=== PATIENT | male | born 1955 | race Caucasian/White ===

== ENCOUNTER 2024-06-11 22:08 | Inpatient (IN) | payer MEDICARE, OTHER, SELFPAY ==
[2024-06-11 19:00] VITALS: BP 168/88
[2024-06-11 19:12] LABS: Hematocrit 29.5 % (39.0-52.0); Mean Corp Hgb Conc. 33.9 g/dL (33.0-37.0); Mean Corpuscular Hgb 29.6 pg (27.0-31.0); Mean Corpuscular Volume 87.3 fL (80.0-94.0); Mean Platelet Volume 8.8 fL (7.4-10.4); Platelet Count 202 10^3/uL (130-400); Red Blood Cell Count 3.38 10^6/uL (4.70-6.10); Red Cell Dist. Width 13.3 % (11.5-14.5); White Blood Cell Count 6.7 10^3/uL (4.8-10.8)
[2024-06-11 19:40] LABS: ALT (SGPT) 20 U/L (0-50); AST (SGOT) 20 U/L (17-59); Albumin 4.1 g/dl (3.5-5.0); Alkaline Phosphatase 53 U/L (38-126); Blood Urea Nitrogen 36 mg/dl (9-20); Calcium 9.7 mg/dl (8.4-10.2); Carbon Dioxide 14 mmol/L (22-30); Glucose 80 mg/dl (70-99); Total Bilirubin 0.4 mg/dl (0.2-1.3); Total Protein 6.1 g/dl (6.3-8.2); eGFR 33.24
[2024-06-11 19:51] LABS: Chloride 116 mmol/L (98-107); Potassium 6.3 mmol/L (3.5-5.1); Sodium 144 mmol/L (135-145)
[2024-06-11 19:57] VITALS: BP 184/82
[2024-06-11 20:00] VITALS: BP 178/77
[2024-06-11 20:28] LABS: Glucose - Point of Care 113 mg/dl (70-99)
--- NOTE | 2024-06-11 20:28 | ED.GENMED ---
History of Present Illness
General
Chief Complaint: Abnormal Lab Value
Source: patient
Time Seen by Provider: 06/11/24 20:03
History of Present Illness
History of Present Illness:
69-year-old male with history of hypertension and recent adrenal gland removal performed in January of this year presents in referral from cardiology at [facility] for elevated potassium levels drawn as an outpatient. Patient notes he has been
getting cramps in his legs he denies chest pain abdominal pain or shortness of breath. No fevers. No vomiting. No other complaint
Phy Exam
Physical Exam
Physical Exam:
General: Well-appearing male no acute respiratory distress
HEENT: Normocephalic atraumatic
Heart: Regular rate and rhythm no murmurs
Lungs: Clear no wheeze or rales
Abdomen is soft nontender nondistended
Extremities: No cyanosis or edema
Skin: Warm no rash
Course
Orders/Labs/Results
Orders:
Orders
06/11/24 19:05
CBC/No Diff [Complete Blood Count/No Diff] Urgent
Comprehensive Metabolic Panel Urgent
06/11/24 19:59
Electrocardiogram (*1) Urgent
Reason for Study: Fatigue / Weakness
EKG- Treatment ONCE
06/11/24 20:13
Dextrose 50%-Water [Dextrose 50% Syringe] 12.5 grams IV [id number] PRN
Dextrose 50%-Water [Dextrose 50% Syringe] 25 grams IV NOW STA
Insulin Human Regular [Novolin R] 5 units IV NOW STA
Sodium Bicarbonate 50 meq IV NOW STA
06/11/24 20:16
Bedside Glucose- Treatment DIRECTED
Bedside Glucose- Treatment ONCE
06/11/24 22:46
Potassium Urgent
Comment: draw 2 hours after regular insulin IV administration
06/12/24 06:00
Sodium Zirconium Cyclosilicate [Lokelma] 10 gram PO TID@0600,1400,1800
Abnormal Lab Results
06/11/24
19:05
RBC 3.38 L 10^6/uL
(4.70-6.10)
Hgb 10.0 L g/dL
(13.0-18.0)
Hct 29.5 L %
(39.0-52.0)
Potassium 6.3 H* mmol/L
(3.5-5.1)
Chloride 116 H mmol/L
(98-107)
Carbon Dioxide 14 L* mmol/L
(22-30)
BUN 36 H mg/dl
(9-20)
Creatinine 2.1 H mg/dL
(0.7-1.3)
Total Protein 6.1 L g/dl
(6.3-8.2)
06/11/24 19:05
Vital Signs
Initial and Last Documented VS:
Initial Vital Signs
Temp Pulse Resp BP Pulse Ox
97.8 F 74 22 168/88 98
06/11/24 19:00 06/11/24 19:00 06/11/24 19:00 06/11/24 19:00 06/11/24 19:00
Last Documented Vital Signs
Temp Pulse Resp BP Pulse Ox
97.8 F 59 22 178/77 98
06/11/24 19:00 06/11/24 20:00 06/11/24 19:00 06/11/24 20:00 06/11/24 20:00
MDM/Problems Addressed
Differential Diagnosis Includes:
Sent in for high potassium readings as outpatient. Potassium here is 6.3. There may be 1-lead on EKG, V2 with a EKG change there is no other changes noted. Vitals are stable otherwise. Patient has creatinine of 2.1 with a bicarb of 14. Insulin
dextrose Lokelma and bicarb ordered and will admit patient for acute hyperkalemia
*Critical Care Note
Total Time (30-74mins, 75-104mins- exclusive of procedures): Not Applicable
ED Attending Note
-
Portions of this chart may have been created with voice recognition software.� Occasional wrong word or��sound alike� substitutions may have occurred due to the inherent limitations of voice recognition software.
Discharge Plan
Departure
Patient Disposition: Admit
Date of Disposition: 06/11/24
Time of Disposition: 20:31
Admit to: Telemetry
Presentation/result/management discussed w/ accepting MD/DO: Hospitalist
Discharge Problem:
Acute hyperkalemia
Prescriptions:
No Action
atorvastatin 40 mg Tablet
40 mg PO HS
clonidine HCl 0.1 mg Tablet
0.05 mg PO TIDPRN PRN (Reason: SBP>160)
hydralazine 25 mg Tablet
25 mg PO TID
nifedipine 30 mg Tablet Extended Release
30 mg PO BID
aspirin 81 mg Tablet,Chewable
81 mg PO HS
cholecalciferol (vitamin D3) [Vitamin D3] 25 mcg (1,000 unit) Tablet
25 mcg PO DAILY
Interventions
Interventions:
*Risk Screen - Suicide Last Done: 06/11/24 18:53
*General Assessment Last Done: 06/11/24 20:09
*Neglect/Abuse Screening Last Done: 06/11/24 19:00
*ED COVID-19 Vaccine History Last Done: 06/11/24 20:09
Discharge Date and Time
Print Language: CITIZEN OF [place]
[2024-06-11] MEDS: NOVOLIN R 5 UNITS IV (20:34)
[2024-06-11] MEDS: DEXTROSE 50% SYRINGE 25 GRAMS IV ×2 (20:34→22:02)
[2024-06-11] MEDS: SODIUM BICARBONATE 50 MEQ IV (20:35)
--- NOTE | 2024-06-11 20:37 | HPS.HSE ---
Family Physician
-
Family Physician:
Chief Complaint
-
leg cramps , chest pain
History of Present Illness
69-year-old male who is English-speaking only and daughter is currently at bedside translating states her father has had potassium issues secondary to adrenal impairment ongoing since winter. She reports he underwent an adrenal gland removal
unclear side January 2024 at [facility]. He periodically checks his potassium when he is symptomatic. She reports on 06/05/2024 he had his potassium checked and he was called today with abnormal result of greater than 6. He has been
complaining of leg cramps for the past 3 days. She is unaware of any underlying renal impairment. She states he had labs in March with normal creatinine and potassium of 5.1. He also had outpatient renal artery ultrasound to rule out renal artery
stenosis due to uncontrolled hypertension. He denies any difficulty voiding his last void was approximately at 5 PM today. She reports his renal ultrasound was normal except for a small right renal cyst. He also told her last week he was having
chest pain for 4 days lasting approximately 10 minutes at a time at rest. She states he had episode today left-sided chest lasting 10 minutes 6 out of 10 which self resolved. She states he did not tell her until they arrived here at the hospital.
He denies headache, blurred vision, palpitations, shortness breath, cough, abdominal pain, nausea, vomiting, diarrhea, urinary symptoms, fever, chills.
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
Medical History
Past Medical History
Past Medical History: Reports Other
Additional Past Medical History:
CAD/Cabg x 4 vessel
HTN
HLD
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
Past Surgical History: Reports Other
Additional Past Surgical History:
CABG x 4 vessel 2013
Appendectomy
Tonsillectomy
Cholecystectomy 1997
adrenal gland removal 2023
sinus surgery
Social History
Tobacco: Non-smoker
Alcohol: None
Drug: None
Personal:
Living: With Family ( )
Family History
Family History: Not pertinent
Allergies / Home Medications
Allergies reflects when Allergies were last updated in [facility].
Home Medications with original date entered in [facility]
Allergy/Medication List:
Allergies
Allergy/AdvReac Type Severity Reaction Status Date / Time
ciprofloxacin [From Cipro] Allergy Unknown Verified 06/11/24 19:02
Home Medications
aspirin 81 mg chewable tablet 81 mg PO HS 06/11/24
atorvastatin 40 mg tablet 40 mg PO HS 06/11/24
cholecalciferol (vitamin D3) 25 mcg (1,000 unit) tablet (Vitamin D3) 25 mcg PO DAILY 06/11/24
clonidine HCl 0.1 mg tablet 0.05 mg PO TIDPRN PRN SBP>160 06/11/24
hydralazine 25 mg tablet 25 mg PO TID 06/11/24
nifedipine 30 mg tablet,extended release 30 mg PO BID 06/11/24
Review of Systems
-
History Source: Patient and Family (daugther)
A 12 point ROS was completed and negative except as noted: Yes
Constitutional: Denies Fever, Fatigue or Chills
EENT: Denies Sore Throat or Runny Nose
Respiratory: Denies Cough, Hemoptysis or Trouble Breathing
Cardiac: Reports Chest Pain (left sided earlier today x 10 min); Denies Diaphoresis, Palpitations or Syncope
Abdomen/GI: Denies Abdominal Pain, Nausea, Vomiting, Diarrhea, Constipated, Bloody Stools, Black Stools, Anorexia or Pain
: Denies Dysuria, Frequency, Flank Pain, Incontinence, Difficulty Voiding, Urgency, Bleeding or Dark Urine
Musculoskeletal: Reports Other (leg cramps reported); Denies Joint Pain, Joint Swelling or Edema
Skin: Denies Itching or Rash
Neurological: Denies Dizzy, Headache, Weakness or Numbness
Endocrine: Reports No Symptoms
Hematologic/Lymphatic: Reports No Symptoms
Psych: Reports Calm
Physical Exam
Vital Signs
Vital Signs
Temp Pulse Resp BP Pulse Ox
97.8 F 59 22 178/77 98
06/11/24 19:00 06/11/24 20:00 06/11/24 19:00 06/11/24 20:00 06/11/24 20:00
Physical Exam
General: No Apparent Distress, Comfortable and Conversant; No Pain, Fever or Chills
HEENT: NormoCephalic, Anicteric, Moist mucous membranes, Atraumatic, PERRLA, [place] Conjunctivae and No Ptosis
Respiratory: Clear; No Wheezes, Rales or Rhonchi
Cardiac: S1/S2 and Regular Rhythm; No Murmur, Rub, Gallop or Peripheral Edema
Breast: Deferred by me
GI: Soft, Non Tender, Non Distended, Normal Bowel Sounds and No Hepatosplenomegaly
Rectal: Deferred by Provider
Genito-urinary: Deferred by me
Musculoskeletal: No Clubbing, No Cyanosis and No Edema
Skin: Warm and Dry; No Rash
Neuro: AO x 3 (speaks citizen of [place] ), No Motor Deficits, Nonfocal/grossly intact and No Sensory Deficits; No Slurred Speech, Facial Droop or Tremors
Psych: Calm
Laboratory Results
-
06/11/24 19:05
Laboratory Results
Total Bilirubin 0.4 mg/dl (0.2-1.3) 06/11/24 19:05
AST 20 U/L (17-59) 06/11/24 19:05
ALT 20 U/L (0-50) 06/11/24 19:05
Alkaline Phosphatase 53 U/L (38-126) 06/11/24 19:05
Impression/Plan
-
Impression/plan:
Admit to telemetry
#Acute hyperkalemia poss 2/2 adrenal insufficiency
K6.3
Patient given Lokelma, insulin, dextrose, bicarb in ER
Bmp at 0100 and 0600
-Obtain records from PCP Dr. Fritz North [phone]
#Chuck
#Hx right renal cyst per daughter
- Renal ultrasound with dopplers
-Consult Nephro
-U/a resident in diagnostic radiology
-urine na, urine creat, urine protein
#Chest pain-Resolved
#CAD/CABG x 4 vessel 2013 [facility]
Reports 10 episode of left-sided chest pain earlier today self resolved was 6 out of 10
-If develops chest pain 3 evening will obtain troponin and EKG
-Sublingual nitro as needed chest pain
-Patient follows with Dr. Robert Navarro [phone]-will obtain recent records including echo, consult, renal ultrasound, labs
-Continue aspirin 81 mg at bedtime, atorvastatin 40 mg at bedtime
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
#HTN�benign/history of prior uncontrolled HTN
-Continue nifedipine 30 mg p.o. twice daily, hydralazine 25 mg 3 times daily
-Continue clonidine 0.05 mg 3 times daily as needed as needed SBP> 160
Dvt proph
-sq heparin
full code
--- NOTE | 2024-06-11 20:57 | W.PN.UPDATE ---
Update Note
Progress Note Update
Patient seen in conjunction with LEXI. She has a history and physical as stated and I agree with the findings. I agree with the assessment and plan unless otherwise stated below.
Briefly this is a 69-year-old with past medical history of CAD status post CABG in 2013, uncontrolled hypertension and diagnosis of Feng syndrome status post adrenalectomy who presents to the emergency department following a blood work showing
hyperkalemia by his change control manager. He also reports of intermittent episodes of chest pain with 1 episode lasting for minutes of a burning sensation last week and another episode today. He actually denies any urinary symptoms including decreased
urine output incontinence frequency or urgency. Denies any prior history of for kidney insufficiency. As stated in the H&P patient has had prior imaging showing a single liver cyst, no anatomical abnormalities of the kidneys in the last 6 months
Assessment and Plan
69-year-old with past medical history of CAD status post CABG in 2013, hypertension, Feng syndrome status post recent adenectomy, who presents to the emergency department with hyperkalemia. His change control manager received blood work 1 week ago with
hyperkalemia and requested that he come to the emergency department. Patient has a history of borderline elevated potassium and variable potassium since his adrenalectomy in February. He is not currently on any potassium sparing diuretics. Unclear
dietary intake. He is hypertensive and acidotic with a bicarb of 14. BUN is elevated at 36 and creatinine of 2.1. The rest of his electrolytes and CBC are within normal limits.
1. Hyperkalemia/Acidosis -hyperkalemia with acidosis consistent with being possibly secondary to mineralocorticoid deficiency/adrenal insufficiency. He did have a adrenalectomy but giving standing history of history is contralateral adrenal may
have been suppressed. However the patient is hypertensive which makes the diagnosis criteria unclear. Also possibly OPAL. No recent abx or potassium sparing diuretic.
- telemetry
- temporizing measures with insulin/dextrose, bicarb. Lokelma given.
- repeat labs in 4 hours and check venous blood gas to verify acidosis
- check am cortisol
- low K diet
- nephrology consult
2. Renal insufficiency - Possibly OPAL as no prior labs and patient unaware of prior renal dysfunction. Reports regular urination
- urinalysis with urine Na, Cr, and protein to eval for sediments, FENa, and proteinuria
- renal/bladder u/s with renal artery dopplers to eval for SAAD given uncontrolled htn
- nephrology consult
3. Chest pain - Intermittent cp, burning lasting few minutes. Atypical but no known GERD
- telemetry
- ntg prn chest pain w/ stat trop
- aspirin 81 for now
- continue statin and bp control
- f/u with cardiology as outpt
4. HTN
- continue hydralazine and nifedipine
- prn clonidine per home regimen
- pending cortisol and renal evaluation, may benefit from hctz if no adrenal insufficiency and or stable renal function
DVT - PPX hep sq
Code Status - Full
[2024-06-11 21:49] LABS: Glucose - Point of Care 61 mg/dl (70-99)
[2024-06-11 22:36] VITALS: BMI 25.3
[2024-06-11 22:37] VITALS: BP 180/88
--- NOTE | 2024-06-11 22:40 | PTCARENOTE ---
Received pt from ER at 2230. Pt AAOx3, ambulatory in room. Pt Slovak speaking with daughter in room to help translate. Oriented to room, call hassan and plan of care.
[2024-06-11] MEDS: LOW STRENGTH ASPIRIN 81 MG PO (22:42)
[2024-06-11] MEDS: APRESOLINE 25 MG PO (22:42)
[2024-06-11] MEDS: LIPITOR 40 MG PO (22:42)
[2024-06-11 22:52] LABS: Glucose - Point of Care 94 mg/dl (70-99)
[2024-06-12 00:22] LABS: Potassium 6.2 mmol/L (3.5-5.1)
[2024-06-12 01:09] LABS: Blood Urea Nitrogen 34 mg/dl (9-20); Calcium 9.7 mg/dl (8.4-10.2); Carbon Dioxide 15 mmol/L (22-30); Chloride 116 mmol/L (98-107); Estimated Creatinine Clearance 37 ml/min; Glucose 102 mg/dl (70-99); Sodium 144 mmol/L (135-145); eGFR 39.99
[2024-06-12] MEDS: NOVOLIN R 0.05 UNITS IV (01:16)
[2024-06-12] MEDS: LOKELMA 10 GRAM PO ×2 (01:16→11:33)
[2024-06-12] MEDS: SODIUM BICARBONATE 50 MEQ IV (01:16)
[2024-06-12] MEDS: DEXTROSE 50% SYRINGE 25 GRAMS IV (01:16)
[2024-06-12 01:34] LABS: Urine Protein 13 mg/dl (0-12); Urine Sodium 140 mmol/L (30-90)
[2024-06-12 02:00] VITALS: BP 143/73
[2024-06-12 02:00] LABS: Glucose - Point of Care 167 mg/dl (70-99)
[2024-06-12 04:16] LABS: % Basophils 0.3 % (0-2); % Eosinophils 3.8 % (0-6); % Immature Granulocytes 0.3 % (0-0.5); % Lymphocytes 20.9 % (20.5-51.1); % Monocytes 9.3 % (1.7-9.3); % Neutrophils 65.4 % (42.2-75.2); Absolute Eosinophils 0.2 10^3/uL (0-0.7); Absolute Lymphocytes 1.2 10^3/uL (1.2-3.4); Absolute Monocytes 0.5 10^3/uL (0.1-0.6); Absolute Neutrophils 3.8 10^3/uL (1.4-6.5); Hematocrit 29.7 % (39.0-52.0); Hemoglobin 10.2 g/dL (13.0-18.0); Mean Corp Hgb Conc. 34.3 g/dL (33.0-37.0); Mean Corpuscular Hgb 30.3 pg (27.0-31.0); Mean Corpuscular Volume 88.1 fL (80.0-94.0); Mean Platelet Volume 9.1 fL (7.4-10.4); Nucleated Red Blood Cells % 0 % (-); Platelet Count 170 10^3/uL (130-400); Red Blood Cell Count 3.37 10^6/uL (4.70-6.10); Red Cell Dist. Width 13.1 % (11.5-14.5); White Blood Cell Count 5.8 10^3/uL (4.8-10.8)
[2024-06-12 04:44] LABS: ALT (SGPT) 19 U/L (0-50); AST (SGOT) 18 U/L (17-59); Albumin 3.7 g/dl (3.5-5.0); Alkaline Phosphatase 52 U/L (38-126); Blood Urea Nitrogen 31 mg/dl (9-20); Calcium 9.7 mg/dl (8.4-10.2); Carbon Dioxide 18 mmol/L (22-30); Chloride 114 mmol/L (98-107); Estimated Creatinine Clearance 39 ml/min; Glucose 101 mg/dl (70-99); Potassium 5.1 mmol/L (3.5-5.1); Sodium 145 mmol/L (135-145); Total Bilirubin 0.5 mg/dl (0.2-1.3); Total Protein 5.7 g/dl (6.3-8.2); eGFR 42.83
[2024-06-12 05:14] LABS: Cortisol, Random 5.5 ug/dl
[2024-06-12 05:22] LABS: Urine Albumin Negative (Neg - Trace); Urine Bilirubin Negative (Negative); Urine Character Clear (Clear); Urine Color Yellow; Urine Glucose Negative (Negative); Urine Ketone Negative (Negative); Urine Leukocyte Negative (Negative); Urine Nitrite Negative (Negative); Urine Occult Blood Negative (Negative); Urine Urobilinogen Negative (Neg - 1+)
[2024-06-12 07:10] VITALS: BP 162/77
[2024-06-12 07:54] LABS: Glucose - Point of Care 93 mg/dl (70-99)
[2024-06-12 08:21] LABS: Blood Urea Nitrogen 31 mg/dl (9-20); Calcium 9.4 mg/dl (8.4-10.2); Carbon Dioxide 20 mmol/L (22-30); Chloride 115 mmol/L (98-107); Estimated Creatinine Clearance 37 ml/min; Glucose 92 mg/dl (70-99); Magnesium 1.9 mg/dl (1.6-2.3); Phosphorus 3.7 mg/dl (2.5-4.5); Potassium 5.8 mmol/L (3.5-5.1); Sodium 144 mmol/L (135-145); eGFR 39.99
[2024-06-12 08:51] LABS: TSH Reflex To Free T4 1.92 uIU/ml (0.47-4.68)
[2024-06-12] MEDS: PROCARDIA XL (EXTENDED RELEASE) 30 MG PO ×2 (09:02→19:30)
[2024-06-12] MEDS: APRESOLINE 25 MG PO ×3 (09:03→22:00)
[2024-06-12] MEDS: HEPARIN 5000 UNITS SC ×3 (09:03→23:54)
[2024-06-12] MEDS: VITAMIN D3 (cholecalciferol) 25 MCG PO (09:03)
[2024-06-12 09:29] LABS: Glycohemoglobin (HgbA1c) 5.1 % (4.0-5.6)
--- NOTE | 2024-06-12 09:55 | W.PN.HOSP.TC ---
Today's Communication/Plan
-
Cardio consult
Echo
Lokelma, serial BMP, nephrology
Assessment / Plan
Assessment / Plan
69yo M, montserratian-speaking, with PMHx of CAD s/p CABG in 2013, uncontrollable HTN s/p L adrenal removal for hyperaldosteronism in [facility] appr 6 months ago with subsequent recurrent hyperkalemia came with elevated potassium and b/l LE cramps similar
that he had 2 months ago too. ALso had couple of episodes of urning chest pain lasting for 15min at rest, that happened last week - he did not told about it to anyone.
A/P:
#Hyperkalemia
#OPAL vs CKD unspecified
most likely 2/2 adrenal insufficiency postsurgical
Nephrology consult
Lokelma and follow potassium level
low potassium diet
With still poor BP control - fludrocortisone can be challenging
cortizol 5.5
TSH WNL
#Chest pain with PMHX of CAD s/p CABG
#1st degree AVB
Telemetry
Echo
serial trop, EKG on admission with non-specific TW abnormality
Cardio cosnult
cont ASA, lipitor
check LDL, proBNP
#Essential HTN
cont home meds
DVT ppx hep
FUll code
I have spent at least 58min revieing chart, test results, communicating with consultants and direct patient care
Anticipated Discharge: 24 - 48 hours
Subjective/Interval History
-
Date of Service: June 12, 2024
Objective Data
-
Labs:
Laboratory Results
06/11/24 06/12/24 06/12/24
23:46 01:00 04:03
WBC 5.8
Hgb 10.2 L
Hct 29.7 L
Plt Count 170
Sodium 144 Cancelled 145
Potassium 6.2 H* Cancelled 5.1
Chloride 116 H Cancelled 114 H
Carbon Dioxide 15 L Cancelled 18 L
BUN 34 H Cancelled 31 H
Creatinine 1.8 H Cancelled 1.7 H
Glucose 102 H Cancelled 101 H
Calcium 9.7 Cancelled 9.7
Total Bilirubin 0.5
AST 18
ALT 19
Alkaline Phosphatase 52
06/12/24 06/12/24 06/12/24
07:32 09:48 17:48
WBC
Hgb
Hct
Plt Count
Sodium 144 Pending Pending
Potassium 5.8 H Pending Pending
Chloride 115 H Pending Pending
Carbon Dioxide 20 L Pending Pending
BUN 31 H Pending Pending
Creatinine 1.8 H Pending Pending
Glucose 92 Pending Pending
Calcium 9.4 Pending Pending
Total Bilirubin
AST
ALT
Alkaline Phosphatase
Vital Signs:
Vital Signs
Temp Pulse Resp BP Pulse Ox
97.9 F 60 16 162/77 96
06/12/24 07:10 06/12/24 07:10 06/12/24 07:10 06/12/24 07:10 06/12/24 07:10
Review of Systems
-
History Source: Patient
All other systems: Reviewed and negative
Physical Exam
-
General: No Apparent Distress
HEENT: Normocephalic
Respiratory: Clear to Auscultation
Cardiac: Regular Rhythm
GI: Soft, Nontender and Nondistended
Musculoskeletal: No Clubbing, No Cyanosis and No Edema
Neuro: Awake, Alert, Oriented and AO x 3
Psych: Calm
--- NOTE | 2024-06-12 10:52 | CON.CAR ---
Addendum entered and electronically signed by Thomas Scherer MD 06/12/24 14:14:
Patient seen and examined in collaboration with PINKING MACHINE OPERATOR; agree with below.
-69-year-old male with coronary artery disease status-post CABG (2013), hypertension, and recent adrenalectomy admitted with hyperkalemia; cardiology consulted for chest pain approximately 1 week ago.
-The patient's chest pain appears to be atypical as it was described as a mid epigastric burning sensation.
-The patient is not having chest pain now, and his cardiac enzymes were normal.
-Obtain echocardiogram today; if unremarkable, can follow-up with his primary Civil Laboratory Technician as an outpatient.
-Will start Imdur 30 mg daily to help with blood pressure control.
-Nephrology consulted for CKD.
Original Note:
Consultation
Consultation Request
Date/Time Consultation Requested: 06/12/2024 09:50
Date/Time Consultation Performed: 06/12/2024 11:00
Requesting Provider: Dr. Bacon
Performing Provider: LEXI Hunt for Dr. Scherer
Reason for Consultation: Chest pain
Medical History
-
Chief Complaint: Hyperkalemia
History of Present Illness:
Grayson is a 69-year-old Wallisian-speaking male with hypertension and recent adrenal[facility] ([facility] who was referred to the emergency department by his keno manager at [facility] for hyperkalemia. He gets symptomatic with
his hyperkalemia and experiences leg cramps. On arrival his potassium was 6.3 and he had metabolic acidosis. This is being managed by the primary service. Cardiology was consulted today, as he reported he had chest pain yesterday in the emergency
department. It lasted approximately 15 minutes. He also reports he has had the sensation of a burning chest pain once last week.
Past Medical History
Past Medical History: CAD (CABG), HTN, Hypercholesterolemia and Other (adrenalectomy [01/2024 [facility]])
Past Surgical History: Appendectomy, Cardiac (CABG), Cholecystectomy and Other (adrenalectomy [01/2024 [facility]
Social History
Tobacco: Non-Smoker
Living: With Family
Employment: Retired
Family History
Family History: Reviewed & Not Pertinent
Allergies / Home Medications
Allergy/AdvReac Type Severity Reaction Status Date / Time
ciprofloxacin [From Cipro] Allergy Unknown Verified 06/11/24 19:02
�Medication �Instructions �Recorded �Confirmed �Type
aspirin 81 mg chewable tablet 81 mg PO HS Blood Clot 06/11/24 06/11/24 History
Prevention/Tx
atorvastatin 40 mg tablet 40 mg PO HS High Cholesterol 06/11/24 06/11/24 History
cholecalciferol (vitamin D3) 25 25 mcg PO DAILY Supplement 06/11/24 06/11/24 History
mcg (1,000 unit) tablet (Vitamin
D3)
clonidine HCl 0.1 mg tablet 0.05 mg PO TIDPRN PRN SBP>160 06/11/24 06/11/24 History
hydralazine 25 mg tablet 25 mg PO TID Blood Pressure 06/11/24 06/11/24 History
nifedipine 30 mg tablet,extended 30 mg PO BID Blood Pressure 06/11/24 06/11/24 History
release
Review of Systems
-
History Source: Patient
All other systems: Negative unless noted
Constitutional: No Symptoms
EENT: No Symptoms
Respiratory: No Symptoms
Cardiac: No Symptoms
Abdomen/GI: No Symptoms
: No Symptoms
Musculoskeletal: No Symptoms
Skin: No Symptoms
Neurological: No Symptoms
Endocrine: No Symptoms
Hematologic/Lymphatic: No Symptoms
Physical Exam
Vital Signs
Temp Pulse Resp BP Pulse Ox
97.9 F 60 16 162/77 96
06/12/24 07:10 06/12/24 07:10 06/12/24 07:10 06/12/24 07:10 06/12/24 07:10
Lab Results
06/12/24 04:03
Physical Exam
General: Well Developed, Well Nourished, No Apparent Distress and Comfortable
HEENT: Normocephalic, Anicteric and Moist Mucous Membranes
Respiratory: Clear and Non Labored Respirations
Cardiac: S1/S2 and Regular Rhythm; Negative Peripheral Edema
Breast: Deferred by me
GI: Soft, Non Tender, Non Distended and Normal Bowel Sounds
Rectal: Deferred by Provider
Genito-urinary: No Costovertebral Tender
Musculoskeletal: No Clubbing, No Cyanosis and No Edema
Skin: Warm and Dry
Neuro: AO x 3
Hematologic/Lymphatic: No Lymphadenopathy
Psych: Calm
Impression / Plan
-
Chest pain
-Chest pain-free at present
-Troponin pending
-Echocardiogram pending
-proBNP pending
-EKG last evening with sinus bradycardia and first-degree AV block with nonspecific T abnormality, update
-Prior CABG x 4, on aspirin and atorvastatin 40 mg
Hypertension, nephrology following given his presentation with OPAL, hyperkalemia, and metabolic acidosis, add Imdur 30mg
Hyperkalemia with metabolic acidosis and OPAL, status post adrenalectomy 01/2024, nephrology consulted
Data Reviewed
-
EKG: Report Reviewed by me (Sinus rhythm with first-degree AV block, nonspecific T wave abnormality, rate 69)
Ultrasound: Report Reviewed by me (Renal: No acute findings)
Labs: Labs Reviewed by me
[2024-06-12 10:56] LABS: HDL Cholesterol 43 mg/dl; LDL Cholesterol, Calculated 40 mg/dl; Total Cholesterol 98 mg/dl (50-199); Triglyceride 78 mg/dl (10-149); Very Low Density Lipoprotein 15 mg/dl (0-30)
[2024-06-12 11:00] VITALS: BP 148/79
[2024-06-12 11:04] LABS: Glucose - Point of Care 103 mg/dl (70-99)
[2024-06-12 11:21] LABS: NT-proBNP 974 pg/ml
--- NOTE | 2024-06-12 11:26 | W.CON.NEPH ---
Consultation
-
Date/Time Consultation Requested: 06/12/24 0800
Date/Time Consultation Performed: 06/12/24 1100
Requesting Provider: De. Levi
Performing Provider: Dr. Meng
Reason for Consultation: OPAL
Medical History
-
Chief Complaint: Leg cramp, chest pain
History of Present Illness:
This is a 69-year-old Guamanian-speaking only gentleman who has hypertension on a multidrug regimen which is modestly controlled, hyperlipidemia controlled with statin therapy. He apparently had a history of hypokalemia by his reports with potassiums
running as low as 2.9. 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 Since then he reports that his potassium levels have slowly risen, and are now out of range on the high side. He began
having left sided chest pain 4 days ago lasting 10min. There was no shortness of breath, sweats. There is no palpitations. At the time of admission potassium was 6.3. He was treated medically. Creatinine was also noted to be elevated at 1.8
with no known baseline. There is also a metabolic acidosis.
Past Medical History
CAD/Cabg x 4 vessel
HTN
HLD
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
CABG x 4 vessel 2013
Appendectomy
Tonsillectomy
Cholecystectomy 1997
sinus surgery
Social History
Tobacco: Non-Smoker
Alcohol: None
Family History
Family History: Not Pertinent
Allergies / Home Medications
Allergy/AdvReac Type Severity Reaction Status Date / Time
ciprofloxacin [From Cipro] Allergy Unknown Verified 06/11/24 19:02
�Medication �Instructions �Recorded �Confirmed �Type
aspirin 81 mg chewable tablet 81 mg PO HS Blood Clot 06/11/24 06/11/24 History
Prevention/Tx
atorvastatin 40 mg tablet 40 mg PO HS High Cholesterol 06/11/24 06/11/24 History
cholecalciferol (vitamin D3) 25 25 mcg PO DAILY Supplement 06/11/24 06/11/24 History
mcg (1,000 unit) tablet (Vitamin
D3)
clonidine HCl 0.1 mg tablet 0.05 mg PO TIDPRN PRN SBP>160 06/11/24 06/11/24 History
hydralazine 25 mg tablet 25 mg PO TID Blood Pressure 06/11/24 06/11/24 History
nifedipine 30 mg tablet,extended 30 mg PO BID Blood Pressure 06/11/24 06/11/24 History
release
Review of Systems
-
No current chest pain or shortness of breath. No more leg cramping.
All other systems: Negative unless noted
Physical Exam
Vital Signs
Vital Signs
Temp Pulse Resp BP Pulse Ox
97.9 F 60 16 162/77 96
06/12/24 07:10 06/12/24 07:10 06/12/24 07:10 06/12/24 07:10 06/12/24 07:10
Lab Results
WBC 5.8 10^3/uL (4.8-10.8) 06/12/24 04:03
RBC 3.37 10^6/uL (4.70-6.10) L 06/12/24 04:03
Hgb 10.2 g/dL (13.0-18.0) L 06/12/24 04:03
Hct 29.7 % (39.0-52.0) L 06/12/24 04:03
Plt Count 170 10^3/uL (130-400) 06/12/24 04:03
eGFR 39.99 06/12/24 07:32
Phosphorus 3.7 mg/dl (2.5-4.5) 06/12/24 07:32
Uet-D-Zeoaslcbcsk Pept 974 pg/ml 06/12/24 07:32
Albumin 3.7 g/dl (3.5-5.0) 06/12/24 04:03
Laboratory Tests
06/12/24 06/12/24
01:08 04:03
Random Cortisol 5.5
Urine pH 7.0
Physical Exam
Patient is awake alert oriented and in no distress. Mood and affect were pleasant, insight and judgment were good. Pupils are equal round and reactive to light, extraocular movements are intact, sclera were anicteric. Hearing was normal, ears and
nose are intact. Oropharynx was clear. Neck was supple with trachea midline and no thyromegaly. Heart was regular rate and rhythm without rubs. Lower extremities without edema. Lungs were clear to auscultation bilaterally and with normal
excursion. Abdomen was soft, nontender, with normal active bowel sounds, and no hepatosplenomegaly. Skin was without rash and with normal turgor. There was an excoriation on his left forearm from a cat bite.
Data Reviewed
-
Ultrasound: Report Reviewed by me (Renal ultrasound on 06/12/2024 shows right kidney 10.7 cm, left kidney 11.6 cm. Adrenal glands not visualized) and Other (Renal duplex on 06/12/2024 shows no significant renal artery stenosis)
Medical Tests (Nuc Med, Echo etc): Image Personally Visualized and interpreted (EKG on 06/11/2024 by my reading shows sinus bradycardia first-degree AV block nonspecific ST-T wave abnormality)
Labs: Labs Reviewed by me
Old Records: Requested
Assessment/Plan
-
Assessment
Hyperkalemia
Metabolic acidosis, nongap
OPAL
Hypertension
Adrenalectomy January 2024, unilateral
Plan
Obtain records
Lokelma daily
Serial BMP
He has alkaline urine in the face of a metabolic acidosis. There is suggestion that there may be a an RTA
Check aldosterone ratio
Check TTKG
Cosyntropin stim test in the morning
[2024-06-12 11:40] LABS: Troponin I < 0.012 ng/ml
[2024-06-12 11:45] LABS: Blood Urea Nitrogen 28 mg/dl (9-20); Calcium 9.9 mg/dl (8.4-10.2); Carbon Dioxide 17 mmol/L (22-30); Chloride 115 mmol/L (98-107); Estimated Creatinine Clearance 44 ml/min; Glucose 99 mg/dl (70-99); Potassium 5.8 mmol/L (3.5-5.1); Sodium 143 mmol/L (135-145); eGFR 49.77
[2024-06-12] MEDS: IMDUR (EXTENDED RELEASE) 30 MG PO (15:36)
[2024-06-12 15:40] VITALS: BP 158/80
[2024-06-12 15:48] LABS: Glucose - Point of Care 93 mg/dl (70-99)
[2024-06-12 16:50] LABS: Osmolality Urine 469 mOsm/kg (300-900)
--- NOTE | 2024-06-12 16:50 | W.PN.UPDATE ---
Update Note
Progress Note Update
Transthoracic Echocardiogram today (06/12/2024):
Left ventricular ejection fraction is 50-55%, by visual assessment. Basal to mid anterolateral, inferoseptal, inferior, and inferolateral hypokinesis. Wall motion is also consistent with conduction abnormality/post-operative state.
Normal right ventricular size and function.
No significant valvular disease.
-Patient's troponin is negative; therefore, wall motion abnormalities are likely not acute.
-Nonetheless, will order a Lexiscan stress test for tomorrow for ischemic evaluation, as these findings could be subacute.
-NPO after midnight.
[2024-06-12 17:01] LABS: Urine Potassium 32.6 mmol/L (30-90); Urine Sodium 112 mmol/L (30-90)
[2024-06-12 17:08] LABS: Glucose - Point of Care 93 mg/dl (70-99)
[2024-06-12 19:12] LABS: Blood Urea Nitrogen 30 mg/dl (9-20); Calcium 9.4 mg/dl (8.4-10.2); Carbon Dioxide 19 mmol/L (22-30); Chloride 110 mmol/L (98-107); Estimated Creatinine Clearance 42 ml/min; Glucose 131 mg/dl (70-99); Potassium 4.7 mmol/L (3.5-5.1); Sodium 143 mmol/L (135-145); eGFR 46.06
[2024-06-12 19:23] VITALS: BP 123/73
[2024-06-12 19:24] LABS: Troponin I < 0.012 ng/ml
[2024-06-12] MEDS: TYLENOL 650 MG PO (19:30)
[2024-06-12 19:52] LABS: Glucose - Point of Care 158 mg/dl (70-99)
[2024-06-12] MEDS: LIPITOR 40 MG PO (22:00)
[2024-06-12] MEDS: LOW STRENGTH ASPIRIN 81 MG PO (22:00)
[2024-06-12 22:48] LABS: Glucose - Point of Care 108 mg/dl (70-99)
[2024-06-12 23:30] VITALS: BP 121/68
[2024-06-13 03:14] VITALS: BP 112/58
--- NOTE | 2024-06-13 03:17 | DOWNTIME ---
There was a [employer] Lead Downtime on 06/13/2024 from 0100 to 06/13/2024 at 0300. Downtime documentation of patient's care, including medication administrations, has been reconciled in the electronic record per guidelines. Refer to the
patient's paper chart under the miscellaneous tab to see printed paper medication records and downtime forms.
[2024-06-13 03:33] LABS: Blood Urea Nitrogen 34 mg/dl (9-20); Calcium 9.2 mg/dl (8.4-10.2); Carbon Dioxide 22 mmol/L (22-30); Chloride 112 mmol/L (98-107); Estimated Creatinine Clearance 39 ml/min; Glucose 98 mg/dl (70-99); Potassium 5.8 mmol/L (3.5-5.1); Sodium 141 mmol/L (135-145); Troponin I < 0.012 ng/ml; eGFR 42.83
[2024-06-13] MEDS: LOKELMA 10 GRAM PO ×2 (03:41→15:47)
[2024-06-13 04:53] LABS: Glucose - Point of Care 99 mg/dl (70-99)
[2024-06-13 05:37] VITALS: BMI 24.9
[2024-06-13 07:48] LABS: Glucose - Point of Care 101 mg/dl (70-99)
[2024-06-13] MEDS: APRESOLINE PO (08:00)
[2024-06-13] MEDS: HEPARIN SC (08:03)
[2024-06-13 08:08] LABS: % Basophils 0.6 % (0-2); % Eosinophils 4.5 % (0-6); % Immature Granulocytes 0.4 % (0-0.5); % Lymphocytes 21.7 % (20.5-51.1); % Monocytes 8.9 % (1.7-9.3); % Neutrophils 63.9 % (42.2-75.2); Absolute Eosinophils 0.2 10^3/uL (0-0.7); Absolute Lymphocytes 1.2 10^3/uL (1.2-3.4); Absolute Monocytes 0.5 10^3/uL (0.1-0.6); Absolute Neutrophils 3.5 10^3/uL (1.4-6.5); Hematocrit 28.8 % (39.0-52.0); Hemoglobin 9.8 g/dL (13.0-18.0); Mean Corpuscular Hgb 29.3 pg (27.0-31.0); Mean Corpuscular Volume 86.2 fL (80.0-94.0); Mean Platelet Volume 9.1 fL (7.4-10.4); Nucleated Red Blood Cells % 0 % (-); Platelet Count 186 10^3/uL (130-400); Red Blood Cell Count 3.34 10^6/uL (4.70-6.10); Red Cell Dist. Width 13.2 % (11.5-14.5); White Blood Cell Count 5.4 10^3/uL (4.8-10.8)
[2024-06-13 08:38] LABS: ALT (SGPT) 17 U/L (0-50); AST (SGOT) 17 U/L (17-59); Albumin 3.7 g/dl (3.5-5.0); Alkaline Phosphatase 49 U/L (38-126); Blood Urea Nitrogen 32 mg/dl (9-20); Blood Urea Nitrogen 33 mg/dl (9-20); Calcium 9.3 mg/dl (8.4-10.2); Calcium 9.7 mg/dl (8.4-10.2); Carbon Dioxide 20 mmol/L (22-30); Carbon Dioxide 22 mmol/L (22-30); Chloride 111 mmol/L (98-107); Estimated Creatinine Clearance 35 ml/min; Estimated Creatinine Clearance 37 ml/min; Glucose 94 mg/dl (70-99); Glucose 95 mg/dl (70-99); Potassium 5.3 mmol/L (3.5-5.1); Potassium 5.5 mmol/L (3.5-5.1); Sodium 141 mmol/L (135-145); Sodium 143 mmol/L (135-145); Total Bilirubin 0.5 mg/dl (0.2-1.3); Total Protein 5.7 g/dl (6.3-8.2); eGFR 37.48; eGFR 39.99
--- NOTE | 2024-06-13 08:44 | W.PN.CD ---
Today's Communication / Plan
-
-Troponins negative, but regional wall motion abnormalities noted on echocardiogram yesterday (LVEF 50-55%).
-Will obtain Lexiscan stress test today for ischemic evaluation; if no ischemia, can follow-up with primary Frame Polisher as an outpatient.
-Added Imdur 30 mg yesterday with significant improvement in blood pressure.
Impression / Plan
-
Chest pain
-Occurred approximately 1 week ago; currently chest pain-free.
-Troponins negative, but regional wall motion abnormalities noted on echocardiogram yesterday (LVEF 50-55%).
-Prior CABG x 4, on aspirin and atorvastatin 40 mg.
-Will obtain Lexiscan stress test today for ischemic evaluation; if no ischemia, can follow-up with primary Frame Polisher as an outpatient.
Hypertension:
-Nephrology following given his presentation with OPAL, hyperkalemia, and metabolic acidosis.
-Added Imdur 30 mg yesterday with significant improvement in blood pressure.
Hyperkalemia with metabolic acidosis and OPAL, status post adrenalectomy 01/2024:
-Nephrology consulted.
Transthoracic Echocardiogram (06/12/2024):
CONCLUSIONS
Left ventricular ejection fraction is 50-55%, by visual assessment. Basal to
mid anterolateral, inferoseptal, inferior, and inferolateral hypokinesis. Wall
motion is also consistent with conduction abnormality/post-operative state.
Normal right ventricular size and function.
No significant valvular disease.
No prior study available for comparison.
Physical Exam
Vital Signs/Labs
Vital Signs
Temp Pulse Resp BP Pulse Ox
97.9 F 63 18 112/58 97
06/13/24 03:14 06/13/24 03:14 06/13/24 03:14 06/13/24 03:14 06/13/24 03:14
06/12/24 06/13/24 06/14/24
06:59 06:59 06:59
Actual Weight 75.41 kg 74.298 kg
06/13/24 07:55
Magnesium 1.9 mg/dl (1.6-2.3) 06/12/24 07:32
Triglycerides 78 mg/dl (10-149) 06/12/24 07:32
LDL Cholesterol, Calc 40 mg/dl 06/12/24 07:32
VLDL Cholesterol, Calc 15 mg/dl (0-30) 06/12/24 07:32
HDL Cholesterol 43 mg/dl 06/12/24 07:32
06/12/24
07:32
Nqh-Y-Bmmtbxnpxjq Pept 974
LAB Results
06/12/24 06/12/24 06/12/24
11:03 18:46 22:00
Troponin I < 0.012 < 0.012 Cancelled
06/13/24
01:45
Troponin I < 0.012
Physical Exam
Constitutional: No acute distress and Comfortable
EENT: Anicteric and Moist mucous membranes
Cardiovascular: Rhythm & rate is regular, Pedal edema is absent, Systolic murmur absent and S1S2 is normal
Respiratory: Respiratory effort normal and Lungs clear to auscul.
GI: Soft and Non tender
Neuro/Psych: AO x 3
Other: Skin (Warm, dry, intact)
Data Reviewed
-
Date of Service: June 13, 2024
EKG: Tracing Personally Visualized and interpreted (Telemetry: Sinus rhythm)
Echo: Tracing Personally Visualized and interpreted (LVEF 50-55%, basal to mid anterolateral, inferoseptal, inferior, and inferolateral hypokinesis; no significant valvular disease.)
Labs: Labs Reviewed by me
[2024-06-13 09:09] LABS: ACTH Stim Cortisol 0 Min 13.9 ug/dl
[2024-06-13] MEDS: LEXISCAN 0.4 MG IV (09:57)
--- NOTE | 2024-06-13 10:47 | PTCARENOTE ---
Pt tolerated Lexiscan well. Refer to Cardiac Services Monitoring Record for assessment and details. Pt under Nuclear camera at present.
--- NOTE | 2024-06-13 11:12 | PTCARENOTE ---
Received patient post Lexiscan. Patient AAOx3, no c/o pain or SOB. Call hassan in reach.
[2024-06-13 11:15] VITALS: BP 152/91
--- NOTE | 2024-06-13 11:16 | PTCARENOTE ---
Report called to floor, no change in status while in Cardiac Services.
[2024-06-13 11:27] LABS: Glucose - Point of Care 101 mg/dl (70-99)
[2024-06-13] MEDS: CORTROSYN 0.25 MG IV (11:30)
[2024-06-13] MEDS: NSS (PRESERVATIVE FREE) 1 ML IV (11:30)
--- NOTE | 2024-06-13 13:23 | W.PN.NEPH.PH ---
Today's Communication / Plan
-
cont LOkelma
add po bicarb
trial of 1lit IVF
Assessment/Plan
-
Assessment
Hyperkalemia
Metabolic acidosis, nongap
OPAL
Hypertension
Adrenalectomy January 2024, unilateral
Plan
Obtain records
no clear baseline cr
seem to improve to 1.5 however slow increase to 1.8 today , trial of IVF 1lit
no retention or obst on US , follow bladder scan, no renal art stenosis
S osmo still pending, likely low TTKG suggesting hypoaldo state but U na is high
cont Lokelma daily
He has alkaline urine in the face of a metabolic acidosis-add po bciarb. There is suggestion that there may be RTA in play
pending aldosterone/renin ratio
cortisol stim test seem to have good response
stress test per cards today
BP are stable, meds adjusted per cards, Imdur added
vol status seem euvolemic, echo noted normal EF with WMA
d/w pt
-
-
Date of Service: June 13, 2024
CC / HPI / ROS
-
Chief Complaint:
OPAL, hyperkalemia
History of Present Illness:
cr slithly up at 1.8
k still high 5.5
bicarb 20, BP better
hb 9.8 slightly low
Review of Systems:
no cp or sob
feels well
Labs
-
Labs:
WBC 5.4 10^3/uL (4.8-10.8) 06/13/24 07:55
RBC 3.34 10^6/uL (4.70-6.10) L 06/13/24 07:55
Hgb 9.8 g/dL (13.0-18.0) L 06/13/24 07:55
Hct 28.8 % (39.0-52.0) L 06/13/24 07:55
Plt Count 186 10^3/uL (130-400) 06/13/24 07:55
eGFR 37.48 06/13/24 07:55
eGFR 39.99 06/13/24 07:55
Phosphorus 3.7 mg/dl (2.5-4.5) 06/12/24 07:32
Aan-K-Ifshsmwjrgv Pept 974 pg/ml 06/12/24 07:32
Albumin 3.7 g/dl (3.5-5.0) 06/13/24 07:55
Physical Exam
-
Vital Signs:
Vital Signs
Temp Pulse Resp BP Pulse Ox
97.9 F 63 18 112/58 97
06/13/24 03:14 06/13/24 03:14 06/13/24 03:14 06/13/24 03:14 06/13/24 03:14
Cardiovascular:: Regular rate and rhythm
Respiratory:: Bilateral: CTA
Lung Excursion:: Normal
Abdomen:: Nontender and Soft
Extremity Edema:: None: Bilateral:
Duncan Catheter: No
[2024-06-13 13:28] LABS: ACTH Stim Cortisol 30 Min 20.3 ug/dl
--- NOTE | 2024-06-13 13:30 | W.PN.HOSP.TC ---
Today's Communication/Plan
-
cont following potassium and further mgmt by nephro
Assessment / Plan
Assessment / Plan
69yo M, emirati-speaking, with PMHx of CAD s/p CABG in 2013, uncontrollable HTN s/p R adrenal removal for hyperaldosteronism in [facility] appr 6 months ago with subsequent recurrent hyperkalemia came with elevated potassium and b/l LE cramps similar
that he had 2 months ago too. Also had couple of episodes of urning chest pain lasting for 15min at rest, that happened last week - he did not told about it to anyone.
A/P:
#Hyperkalemia
#OPAL vs CKD unspecified
most likely 2/2 adrenal insufficiency postsurgical
Nephrology consult
Lokelma and follow potassium level
low potassium diet
With still poor BP control - fludrocortisone can be challenging
cortizol 5.5 - ACTH stim test
TSH WNL
Renal US with simple cysts, no renal artery stenosis
#Chest pain with PMHX of CAD s/p CABG
#1st degree AVB
Telemetry
Echo
serial trop, EKG on admission with non-specific TW abnormality
Cardio consult: s/p Lexiscan stress on 06/13/24
Added imdur
cont ASA, lipitor
check LDL, proBNP
#Essential HTN
cont home meds
DVT ppx hep
FUll code
I have spent at least 38min reviewing chart, test results, communicating with consultants and direct patient care
Anticipated Discharge: 24 - 48 hours
Subjective/Interval History
-
Date of Service: June 13, 2024
Objective Data
-
Labs:
Laboratory Results
06/13/24 06/13/24 06/13/24
01:45 07:55 07:55
WBC 5.4
Hgb 9.8 L
Hct 28.8 L
Plt Count 186
Sodium 141 141 143
Potassium 5.8 H 5.3 H
Chloride 112 H
Carbon Dioxide 22
BUN 34 H
Creatinine 1.7 H
Glucose 98
Calcium 9.2
Total Bilirubin
AST
ALT
Alkaline Phosphatase
06/13/24 06/13/24 06/13/24
07:55 07:55 07:55
WBC
Hgb
Hct
Plt Count
Sodium
Potassium 5.5 H
Chloride 111 H 111 H
Carbon Dioxide 22 20 L
BUN 33 H
Creatinine
Glucose
Calcium
Total Bilirubin
AST
ALT
Alkaline Phosphatase
06/13/24 06/13/24 06/13/24
07:55 07:55 07:55
WBC
Hgb
Hct
Plt Count
Sodium
Potassium
Chloride
Carbon Dioxide
BUN 32 H
Creatinine 1.9 H 1.8 H
Glucose 95 94
Calcium 9.7
Total Bilirubin
AST
ALT
Alkaline Phosphatase
06/13/24
07:55
WBC
Hgb
Hct
Plt Count
Sodium
Potassium
Chloride
Carbon Dioxide
BUN
Creatinine
Glucose
Calcium 9.3
Total Bilirubin 0.5
AST 17
ALT 17
Alkaline Phosphatase 49
Vital Signs:
Vital Signs
Temp Pulse Resp BP Pulse Ox
97.9 F 63 18 112/58 97
06/13/24 03:14 06/13/24 03:14 06/13/24 03:14 06/13/24 03:14 06/13/24 03:14
I&O
06/12/24 06/13/2424
06:59 06:59 06:59
Intake Total 1200 / 1200
Output Total 900 / 900
Balance 300 / 300
Review of Systems
-
History Source: Patient
All other systems: Reviewed and negative
Physical Exam
-
General: No Apparent Distress
HEENT: Normocephalic
Respiratory: Clear to Auscultation
Cardiac: Regular Rhythm
GI: Soft, Nontender and Nondistended
Neuro: Awake, Alert, Oriented and AO x 3
Psych: Calm
--- NOTE | 2024-06-13 13:48 | W.PN.UPDATE ---
Update Note
Progress Note Update
Nuclear stress shows inferolateral infarct. No ischemia. Full report to follow.
Plan will be medical management.
Please call us back with additional questions.
[2024-06-13 14:01] LABS: ACTH Stim Cortisol 60 Min 26.1 ug/dl
[2024-06-13] MEDS: VITAMIN D3 (cholecalciferol) 25 MCG PO (14:04)
[2024-06-13] MEDS: PROCARDIA XL (EXTENDED RELEASE) 30 MG PO ×2 (14:04→20:19)
[2024-06-13] MEDS: SODIUM BICARBONATE 1075 MEQ IV (14:05)
[2024-06-13 14:59] VITALS: BP 155/78
--- NOTE | 2024-06-13 15:17 | CM ---
store sales manager reviewed patients chart and met with patient is Greenlandic speaking, bottle caser received information on patient's home set up through a plant maintenance manager. patient lives with daughter, son in law and grandchild patient is independent with adl's
and ambulation. No dme.
Pharmacy: [facility]
Plan; Home with family when stable, no needs.
[2024-06-13 15:50] LABS: Osmolality Serum 298 mOsm/kg (275-300)
[2024-06-13] MEDS: HEPARIN 5000 UNITS SC ×2 (18:47→23:05)
[2024-06-13] MEDS: APRESOLINE 25 MG PO ×2 (18:48→22:45)
[2024-06-13 18:59] LABS: Blood Urea Nitrogen 29 mg/dl (9-20); Calcium 9.7 mg/dl (8.4-10.2); Carbon Dioxide 20 mmol/L (22-30); Chloride 109 mmol/L (98-107); Estimated Creatinine Clearance 42 ml/min; Glucose 114 mg/dl (70-99); Potassium 4.7 mmol/L (3.5-5.1); Sodium 146 mmol/L (135-145); eGFR 46.06
[2024-06-13 19:34] VITALS: BP 144/86
[2024-06-13] MEDS: SODIUM BICARBONATE 650 MG PO (20:19)
[2024-06-13] MEDS: LIPITOR 40 MG PO (22:45)
[2024-06-13] MEDS: LOW STRENGTH ASPIRIN 81 MG PO (22:45)
[2024-06-13 22:48] VITALS: BP 141/79
[2024-06-14 03:12] VITALS: BP 121/75
[2024-06-14 06:00] VITALS: BMI 24.9
[2024-06-14 07:00] VITALS: BP 143/71
[2024-06-14 08:19] LABS: % Basophils 0.6 % (0-2); % Eosinophils 3.4 % (0-6); % Immature Granulocytes 0.4 % (0-0.5); % Lymphocytes 23.1 % (20.5-51.1); % Monocytes 9.9 % (1.7-9.3); % Neutrophils 62.6 % (42.2-75.2); Absolute Eosinophils 0.2 10^3/uL (0-0.7); Absolute Lymphocytes 1.2 10^3/uL (1.2-3.4); Absolute Monocytes 0.5 10^3/uL (0.1-0.6); Absolute Neutrophils 3.2 10^3/uL (1.4-6.5); Hematocrit 27.7 % (39.0-52.0); Hemoglobin 9.8 g/dL (13.0-18.0); Mean Corp Hgb Conc. 35.4 g/dL (33.0-37.0); Mean Corpuscular Hgb 30.7 pg (27.0-31.0); Mean Corpuscular Volume 86.8 fL (80.0-94.0); Mean Platelet Volume 9.4 fL (7.4-10.4); Nucleated Red Blood Cells % 0 % (-); Platelet Count 183 10^3/uL (130-400); Red Blood Cell Count 3.19 10^6/uL (4.70-6.10); Red Cell Dist. Width 12.9 % (11.5-14.5)
[2024-06-14] MEDS: APRESOLINE 25 MG PO ×2 (08:45→15:07)
[2024-06-14] MEDS: VITAMIN D3 (cholecalciferol) 25 MCG PO (08:45)
[2024-06-14] MEDS: PROCARDIA XL (EXTENDED RELEASE) 30 MG PO (08:46)
[2024-06-14] MEDS: HEPARIN 5000 UNITS SC (08:46)
[2024-06-14] MEDS: SODIUM BICARBONATE 650 MG PO (08:46)
[2024-06-14 09:01] LABS: ALT (SGPT) 17 U/L (0-50); AST (SGOT) 16 U/L (17-59); Albumin 3.4 g/dl (3.5-5.0); Alkaline Phosphatase 53 U/L (38-126); Blood Urea Nitrogen 29 mg/dl (9-20); Carbon Dioxide 18 mmol/L (22-30); Chloride 112 mmol/L (98-107); Estimated Creatinine Clearance 44 ml/min; Glucose 98 mg/dl (70-99); Potassium 4.3 mmol/L (3.5-5.1); Sodium 142 mmol/L (135-145); Total Bilirubin 0.3 mg/dl (0.2-1.3); Total Protein 5.4 g/dl (6.3-8.2); eGFR 49.77
[2024-06-14] MEDS: LOKELMA 10 GRAM PO (10:38)
[2024-06-14] MEDS: MIRALAX 17 GRAMS PO (10:40)
[2024-06-14 11:00] VITALS: BP 149/74
--- NOTE | 2024-06-14 11:19 | W.PN.HOSP.TC ---
Today's Communication/Plan
-
pending further nephro mgmt
Assessment / Plan
Assessment / Plan
69yo M, nigerian-speaking, with PMHx of CAD s/p CABG in 2013, uncontrollable HTN s/p R adrenal removal for hyperaldosteronism in [facility] 6 months ago with subsequent recurrent hyperkalemia came with elevated potassium and b/l LE cramps similar
that he had 2 months ago too. Also had couple of episodes of urning chest pain lasting for 15min at rest, that happened last week - he did not told about it to anyone. Stress test showed inferolateral infarct, no ischemia, cardiology will cont
medical mgmt. Hyperkalemia improving on Lokelma. Was advised to see his Tire Trimmer Hand in [facility] upon d/c
A/P:
#Hyperkalemia
#OPAL vs CKD unspecified
most likely 2/2 adrenal insufficiency postsurgical
Nephrology consult
Lokelma and follow potassium level
low potassium diet
With still poor BP control - fludrocortisone can be challenging
cortizol 5.5 - ACTH stim test neg for primary adrenal insufficiency
TSH WNL
Renal US with simple cysts, no renal artery stenosis
#Chest pain with PMHX of CAD s/p CABG
#1st degree AVB
Telemetry without clinically significant arrhythmia
Echo: Left ventricular ejection fraction is 50-55%, by visual assessment. Basal to
mid anterolateral, inferoseptal, inferior, and inferolateral hypokinesis
serial trop, EKG on admission with non-specific TW abnormality
Cardio consult: s/p Lexiscan stress on 06/13/24 - inferolateral infarct, no ischemia, will cont medical mgmt
Added imdur
cont ASA, lipitor
check LDL, proBNP
#Constipation
laxatives
#Essential HTN
cont home meds
DVT ppx hep
FUll code
I have spent at least 38min reviewing chart, test results, communicating with consultants and direct patient care
Anticipated Discharge: Within 24 hours
Subjective/Interval History
-
Date of Service: June 14, 2024
Objective Data
-
Labs:
Laboratory Results
06/14/24
07:44
WBC 5.0
Hgb 9.8 L
Hct 27.7 L
Plt Count 183
Sodium 142
Potassium 4.3
Chloride 112 H
Carbon Dioxide 18 L
BUN 29 H
Creatinine 1.5 H
Glucose 98
Calcium 9.0
Total Bilirubin 0.3
AST 16 L
ALT 17
Alkaline Phosphatase 53
Vital Signs:
Vital Signs
Temp Pulse Resp BP Pulse Ox
97.4 F 59 16 143/71 99
06/14/24 07:00 06/14/24 07:00 06/14/24 07:00 06/14/24 07:00 06/14/24 08:45
I&O
06/13/24 06/14/24 06/15/24
06:59 06:59 06:59
Intake Total 1200 / 1200 600 / 600
Output Total 900 / 900
Balance 300 / 300 600 / 600
--- NOTE | 2024-06-14 13:46 | CM ---
Home when stable, no needs.
Plan; Home no needs when stable.
--- NOTE | 2024-06-14 14:08 | W.DCSUMMARY ---
Discharge Summary
Discharge Data
Date of Admission: 06/11/24
Date of Discharge: 06/14/24
-
Pending Results: No
Hospital Course
69yo M, belgian-speaking, with PMHx of CAD s/p CABG in 2013, uncontrollable HTN s/p R adrenal removal for hyperaldosteronism in [facility] appr 6 months ago with subsequent recurrent hyperkalemia came with elevated potassium and b/l LE cramps similar
that he had 2 months ago too. Also had couple of episodes of urning chest pain lasting for 15min at rest, that happened last week - he did not told about it to anyone. Stress test showed inferolateral infarct, no ischemia, cardiology will cont
medical mgmt, EF was lower then on Echo - 35%. Patient will follow with his established conveyor tender.. Hyperkalemia improving on Lokelma. Was advised to see his [employer] Ambassador Departure Clerk in [facility] upon d/c. Recommended low potassium diet,
Lokelma and repeat BMP with program management professional in 1 week.
As per patient - his episode of hyperkalemia possibly was due to food indiscretion - was consuming a lot of apples with baby carrots lately. Information on low potassium diet provided.
Medically stable for d/c as bCr on baseline (1.4-1.6 as per patient). Had small BM before d/c. Patient was explained instructions in details in Kenyan and verbalized understanding.
I have spent at least 39min discharging the patient
Patient was managed for::
#Hyperkalemia
#OPAL vs CKD unspecified
#Chest pain with PMHX of CAD s/p CABG
#1st degree AVB
#Constipation
#Essential HTN
Discharge Plan
-
Patient Disposition: Home (Routine Discharge)
Discharge Diagnosis/Procedures: hyperkalemia
Diet: Other diet
Additional Diets: low potassium
Activity: As tolerated
Activity Restrictions/Additional Instructions:
Please schedule your appointment with conveyor tender, program management professional and dairy quality assurance officer in [facility] in 1 week. Repeat potassium level with your program management professional in 1 week upon d/c
Referrals:
UNKNOWN - PT DOES,NOT KNOW [Family Provider] -
Prescriptions:
New
isosorbide mononitrate 30 mg Tablet Extended Release 24 Hr
30 mg PO DAILY Qty: 30 0RF
sodium bicarbonate 650 mg Tablet
650 mg PO BID Qty: 60 0RF
Lokelma 10 gram Powder In Packet
10 g PO DAILY Qty: 15 0RF
Continued
atorvastatin 40 mg Tablet
40 mg PO HS
clonidine HCl 0.1 mg Tablet
0.05 mg PO TIDPRN PRN (Reason: SBP>160)
hydralazine 25 mg Tablet
25 mg PO TID
nifedipine 30 mg Tablet Extended Release
30 mg PO BID
aspirin 81 mg Tablet,Chewable
81 mg PO HS
cholecalciferol (vitamin D3) [Vitamin D3] 25 mcg (1,000 unit) Tablet
25 mcg PO DAILY
Discharge Orders:
Discharge Patient (As Directed); Ordered 06/14/24
Ordered By: Ángel Bacon
Discharge Date and Time
Print Language: KYRGYZ
--- NOTE | 2024-06-14 14:36 | W.PN.NEPH.PH ---
Today's Communication / Plan
-
ok for d/c
Assessment/Plan
-
Assessment
Hyperkalemia
Metabolic acidosis, nongap
OPAL
Hypertension
Adrenalectomy January 2024, unilateral
Plan
Obtain records
no clear baseline cr
seem to improve to 1.5 , per pt baseline 1.4-1.6
no retention or obst on US , follow bladder scan, no renal art stenosis
low TTKG suggesting hypoaldo state but U na is high
cont Lokelma daily, ok to decrease dose to 5gm daily
He has alkaline urine in the face of a metabolic acidosis-add po bciarb. There is suggestion that there may be RTA in play
pending aldosterone/renin ratio
cortisol stim test seem to have good response
stress test no reversible ischemia
BP are stable, meds adjusted per cards, Imdur added
vol status seem euvolemic, echo noted normal EF with WMA
d/w pt
ok for d/c f/u with Nephro at [facility]
BMP next week on Tuesday
-
-
Date of Service: June 14, 2024
CC / HPI / ROS
-
Chief Complaint:
OPAL, hyperkalemia
History of Present Illness:
cr slithly up at 1.8, improved to 1.5
k better at 4.3
bicarb 18, BP better
hb 9.8 stable
Review of Systems:
no cp or sob
feels well
constipated since admit
Labs
-
Labs:
WBC 5.0 10^3/uL (4.8-10.8) 06/14/24 07:44
RBC 3.19 10^6/uL (4.70-6.10) L 06/14/24 07:44
Hgb 9.8 g/dL (13.0-18.0) L 06/14/24 07:44
Hct 27.7 % (39.0-52.0) L 06/14/24 07:44
Plt Count 183 10^3/uL (130-400) 06/14/24 07:44
Sodium 142 mmol/L (135-145) 06/14/24 07:44
Potassium 4.3 mmol/L (3.5-5.1) 06/14/24 07:44
Chloride 112 mmol/L (98-107) H 06/14/24 07:44
Carbon Dioxide 18 mmol/L (22-30) L 06/14/24 07:44
BUN 29 mg/dl (9-20) H 06/14/24 07:44
Creatinine 1.5 mg/dL (0.7-1.3) H 06/14/24 07:44
eGFR 49.77 06/14/24 07:44
Glucose 98 mg/dl (70-99) 06/14/24 07:44
Calcium 9.0 mg/dl (8.4-10.2) 06/14/24 07:44
Phosphorus 3.7 mg/dl (2.5-4.5) 06/12/24 07:32
Skt-M-Ehxizrmdasd Pept 974 pg/ml 06/12/24 07:32
Albumin 3.4 g/dl (3.5-5.0) L 06/14/24 07:44
Physical Exam
-
Vital Signs:
Vital Signs
Temp Pulse Resp BP Pulse Ox
97.6 F 86 20 149/74 98
06/14/24 11:00 06/14/24 11:00 06/14/24 11:00 06/14/24 11:00 06/14/24 11:00
Cardiovascular:: Regular rate and rhythm
Respiratory:: Bilateral: CTA
Lung Excursion:: Normal
Abdomen:: Nontender and Soft
Extremity Edema:: None: Bilateral:
Duncan Catheter: No
[2024-06-14 15:00] VITALS: BP 152/83
[2024-06-14] MEDS: HEPARIN SC (15:07)
[2024-06-15 10:32] LABS: Aldosterone, Serum 8.8 ng/dL; Renin Activity Results 0.1 ng/mL/hr
== END 2024-06-14 16:51 | disposition home or self-care (01) | DRG 641 ==
LOC: 4 WEST ACU 22:08
PROVIDERS: Clinical Nurse Specialist Family Health; Nurse Practitioner Family; Physician Assistant; ADMITTING PHYSICIAN Internal Medicine; ATTENDING PHYSICIAN Internal Medicine; CONSULT PHYSICIAN Internal Medicine; CONSULT PHYSICIAN Specialist; EMERGENCY PHYSICIAN Emergency Medicine
DX: E87.5 Hyperkalemia (principal); N17.9 Acute kidney failure, unspecified; E24.9 Cushing's syndrome, unspecified; I10 Essential (primary) hypertension; E87.20 Acidosis, unspecified; I25.10 Atherosclerotic heart disease of native coronary artery without angina pectoris; Z95.1 Presence of aortocoronary bypass graft; I44.0 Atrioventricular block, first degree; E78.00 Pure hypercholesterolemia, unspecified; K59.00 Constipation, unspecified; N28.1 Cyst of kidney, acquired; E26.9 Hyperaldosteronism, unspecified; R07.89 Other chest pain; Z79.82 Long term (current) use of aspirin; Z79.899 Other long term (current) drug therapy; Z88.1 Allergy status to other antibiotic agents; Z90.49 Acquired absence of other specified parts of digestive tract
CPT/HCPCS: 74022; 76770; 78452; 80048; 80053; 80061; 81003; 82088; 82533; 82570; 82962; 83036; 83735; 83880; 83930; 83935; 84100; 84132; 84133; 84156; 84244; 84300; 84443; 84484; 85025; 85027; 93005; 93017; 93306; 93975; 96374; 96375; 99285; A9500; J2785; J7030